=== PATIENT | male | born 1995 | race Caucasian/White ===

== ENCOUNTER 2022-03-21 21:52 | Emergency (ER) | payer SELFPAY ==
[~2022-03-21] VITALS: Ht 162.6 cm; Wt 70.0 kg
[2022-03-21 22:05] VITALS: BP 144/99
[2022-03-21 22:42] LABS: BASOPHILS % 0.5 % (0.0-2.0); EOSINOPHILS % 0.7 % (0.0-5.0); HEMATOCRIT. 50.1 % (42.0-52.0); HEMOGLOBIN. 16.4 g/dL (14.0-18.0); LYMPHOCYTES % 32.1 % (20.0-50.0); MEAN CORPUSCULAR HEMOGLOBIN 30.3 pg (28.0-32.0); MEAN CORPUSCULAR VOLUME 92.5 fL (80.0-94.0); MEAN PLATELET VOLUME 9.2 fl (7.4-10.4); MONOCYTES % 6.4 % (2.0-8.0); NEUTROPHILS % 60.3 % (40.0-76.0); PLATELET 280 x1000/uL (130-400); RED BLOOD CELL COUNT 5.42 mill/uL (4.7-6.1); RED CELL DISTRIBUTION WIDTH 13.8 % (11.6-14.6)
[2022-03-21 22:48] LABS: CHLORIDE 106 mEq/L (98-107)
[2022-03-21 22:56] LABS: ETHANOL BLOOD 233 mg/dL
[2022-03-21 23:21] LABS: CLARITY URINE CLEAR (CLEAR); COLOR URINE YELLOW (YELLOW); KETONES URINE NEGATIVE (NEGATIVE); LEUKOCYTE ESTERASE URINE NEGATIVE (NEGATIVE); NITRITE URINE NEGATIVE (NEGATIVE); OCCULT BLOOD URINE TRACE (NEGATIVE); PROTEIN URINE 2+ (NEGATIVE); SPECIFIC GRAVITY URINE 1.008 (1.005-1.030); UROBILINOGEN URINE 0.2 E.U./dL (0.2-1.0)
[2022-03-21 23:31] LABS: *AMPHETAMINES SCREEN URINE PRESUMTIVE POSITIVE (NEGATIVE); *BARBITURATES SCREEN URINE NEGATIVE (NEGATIVE); *BENZODIAZEPINES SCREEN URINE NEGATIVE (NEGATIVE); *COCAINE SCREEN URINE NEGATIVE (NEGATIVE); CANNABINOID URINE SCREEN NEGATIVE (NEGATIVE); METHADONE URINE SCREEN NEGATIVE (NEGATIVE); OPIATES URINE SCREEN NEGATIVE (NEGATIVE); PHENCYCLIDINE URINE SCREEN NEGATIVE (NEGATIVE)
[2022-03-22] MEDS ORDERED: NALO4SPR BOTHNSTRLS (00:38)
== END 2022-03-22 00:50 | disposition home or self-care (01) ==
LOC: ER 21:52
DX: T40.601A Poisoning by unspecified narcotics, accidental (unintentional), initial encounter (principal); Y92.9 Unspecified place or not applicable
CPT/HCPCS: 36415; 80053; 80305; 80320; 81003; 85025; 99283; G0480

== ENCOUNTER 2023-06-29 16:41 | Emergency (ER) | payer SELFPAY ==
[~2023-06-29] VITALS: Ht 170.2 cm; Wt 67.0 kg
[~2023-06-29 16:41] MED LIST: NALO4SPR BOTHNSTRLS
[2023-06-29 16:54] VITALS: O2SAT 100
[2023-06-29] MEDS ORDERED: ONDANSETRON 4MG ODT PO ONE (17:00)
[2023-06-29] MEDS ORDERED: ONDANSETRON 4MG ODT PO NR (18:45)
[2023-06-29] MEDS ORDERED: NAP5EC MT (19:46)
[2023-06-29] MEDS ORDERED: IBUPROFEN 600MG TABLET PO ONE (20:00)
[2023-06-29 20:10] VITALS: BP 117/80; PULSE 62; RESP 16; TEMP 98.6
== END 2023-06-29 20:21 | disposition home or self-care (01) ==
LOC: ER 16:41
DX: M54.50 Low back pain, unspecified (principal); F19.90 Other psychoactive substance use, unspecified, uncomplicated; V98.8XXA Other specified transport accidents, initial encounter; Y93.89 Activity, other specified; Y92.89 Other specified places as the place of occurrence of the external cause; Y99.8 Other external cause status
CPT/HCPCS: 99283; 72110; Q0162

== ENCOUNTER 2025-03-16 17:58 | Inpatient (IN) | payer MEDICAID ==
[~2025-03-16] VITALS: Ht 165.1 cm; Wt 53.5 kg
[~2025-03-16 17:58] MED LIST changes: +NAPR-1495 MT
[2025-03-16 18:03] VITALS: O2SAT 99
[2025-03-16] MEDS: LIDOCAINE HCL 1% 20ML VIAL INFIL ONE ×2 (18:30)
[2025-03-16] MEDS: SODIUM CHLORIDE 0.9% 1,000 ML IV ONE (18:37)
[2025-03-16] MEDS: TETANUS, DIPHTHERIA, PERTUSSIS VAC/PF 0.5ML (>10YR OLD) IM ONE (18:38)
[2025-03-16 18:47] LABS: BASOPHILS % 0.5 % (0.0-2.0); EOSINOPHILS % 2.2 % (0.0-5.0); HEMATOCRIT. 46.8 % (42.0-52.0); HEMOGLOBIN. 15.8 g/dL (14.0-18.0); LYMPHOCYTES % 23.1 % (20.0-50.0); MEAN PLATELET VOLUME 9.0 fl (7.4-10.4); MONOCYTES % 7.8 % (2.0-8.0); NEUTROPHILS % 66.4 % (40.0-76.0); PLATELET 309 x1000/uL (130-400); RED BLOOD CELL COUNT 5.03 mill/uL (4.7-6.1); RED CELL DISTRIBUTION WIDTH 13.9 % (11.6-14.6)
[2025-03-16 18:52] LABS: CREATININE 1.0 mg/dL (0.6-1.3); UREA NITROGEN BLOOD 5 mg/dL (9-23)
[2025-03-16 19:01] LABS: INR 1.0
[2025-03-16] MEDS: CEFAZOLIN 1000MG PREMIX 50 ML IV ONE (19:19)
[2025-03-16] MEDS: MORPHINE SULFATE 4 MG/ML INJ (FOR IV/IM USE) IV ONE (21:12)
[2025-03-16] MEDS: ONDANSETRON HCL 4MG/2ML INJ IV ONE (21:13)
[2025-03-16] MEDS: MORPHINE SULFATE 2 MG/ML INJ (NOT FOR IM USE) IV ONE (23:51)
[2025-03-17] VITALS (7 sets, daily range): BP systolic 122–151; BP diastolic 53–99; PULSE 59–74; RESP 16–20; TEMP 36.6–37.2; O2SAT 96–99
[2025-03-17] MEDS ORDERED: ONDANSETRON HCL 4MG/2ML INJ IV PRN (00:15)
[2025-03-17] MEDS ORDERED: ACETAMINOPHEN 325MG TABLET PO PRN (00:15)
[2025-03-17] MEDS ORDERED: MAGNESIUM/ALUMINUM HYDROXIDE/SIMETHICONE 30ML UDC PO PRN (00:15)
[2025-03-17] MEDS ORDERED: NALOXONE HCL 0.4MG/ML VIAL IV PRN (00:15)
[2025-03-17] MEDS: HYDROCODONE/ACETAMINOPHEN 5/325MG TABLET PO PRN (00:56)
[2025-03-17] MEDS: CEFTRIAXONE 1GM/50ML 50 ML IV SCH (01:23)
[2025-03-17] MEDS: ENOXAPARIN 40MG/0.4ML SYR SUBCUT SCH (08:23)
[2025-03-17] MEDS: PANTOPRAZOLE SODIUM 40 MG/VIAL IV SCH (08:23)
[2025-03-17 15:38] LABS: CLARITY URINE CLEAR (CLEAR); COLOR URINE YELLOW (YELLOW); GLUCOSE URINE NEGATIVE (NEGATIVE); KETONES URINE NEGATIVE (NEGATIVE); LEUKOCYTE ESTERASE URINE NEGATIVE (NEGATIVE); NITRITE URINE NEGATIVE (NEGATIVE); OCCULT BLOOD URINE NEGATIVE (NEGATIVE); PH URINE 6.0 (4.5-8.0); PROTEIN URINE 1+ (NEGATIVE); SPECIFIC GRAVITY URINE 1.010 (1.005-1.030); UROBILINOGEN URINE 0.2 E.U./dL (0.2-1.0)
[2025-03-17 15:46] LABS: *AMPHETAMINES SCREEN URINE NEGATIVE (NEGATIVE); *BARBITURATES SCREEN URINE NEGATIVE (NEGATIVE); *BENZODIAZEPINES SCREEN URINE NEGATIVE (NEGATIVE); *COCAINE SCREEN URINE NEGATIVE (NEGATIVE); CANNABINOID URINE SCREEN NEGATIVE (NEGATIVE); ECSTASY MDMA SCREEN URINE NEGATIVE (NEGATIVE); METHADONE URINE SCREEN NEGATIVE (NEGATIVE); OPIATES URINE SCREEN PRESUMPTIVE POSITIVE (NEGATIVE); PHENCYCLIDINE URINE SCREEN NEGATIVE (NEGATIVE)
[2025-03-17 15:55] LABS: BACTERIA URINE NONE SEEN; RBC URINE 0-2 /hpf (0-2); SQUAMOUS EPITHELIAL CELL URINE RARE /lpf (RARE/1+); WBC URINE 0-2 /hpf (0-2)
[2025-03-18] VITALS: BP 120/91; PULSE 74; RESP 18; TEMP 36.4; O2SAT 99
[2025-03-18] MEDS: CEFTRIAXONE 1GM/50ML 50 ML IV SCH (01:23)
[2025-03-18 04:00] VITALS: BP 144/94; PULSE 63; RESP 18; TEMP 36.7; O2SAT 99
[2025-03-18 08:00] VITALS: BP 130/98; PULSE 71; RESP 18; TEMP 36.4; O2SAT 99
[2025-03-18 08:30] LABS: BASOPHILS % 0.4 % (0.0-2.0); EOSINOPHILS % 1.9 % (0.0-5.0); HEMATOCRIT. 47.7 % (42.0-52.0); HEMOGLOBIN. 16.2 g/dL (14.0-18.0); LYMPHOCYTES % 23.5 % (20.0-50.0); MEAN PLATELET VOLUME 9.3 fl (7.4-10.4); MONOCYTES % 9.1 % (2.0-8.0); NEUTROPHILS % 65.1 % (40.0-76.0); PLATELET 306 x1000/uL (130-400); RED BLOOD CELL COUNT 5.17 mill/uL (4.7-6.1); RED CELL DISTRIBUTION WIDTH 13.7 % (11.6-14.6)
[2025-03-18 08:50] LABS: CREATININE 1.0 mg/dL (0.6-1.3); UREA NITROGEN BLOOD 11 mg/dL (9-23)
[2025-03-18 12:00] VITALS: BP 125/93; PULSE 67; RESP 67; TEMP 36.7; O2SAT 99
[2025-03-18 15:36] VITALS: BP 109/76; PULSE 74; RESP 18; TEMP 36.6; O2SAT 98
[2025-03-18 20:00] VITALS: BP 122/84; PULSE 73; RESP 18; TEMP 36.7; O2SAT 99
[2025-03-18] MEDS ORDERED: IOHEXOL-300 100 ML BOTTLE ONE (22:25)
[2025-03-19] VITALS: BP 128/84; PULSE 68; RESP 18; TEMP 36.7; O2SAT 98
[2025-03-19] MEDS: SODIUM CHLORIDE 0.9% 1,000 ML IV SCH (01:06)
[2025-03-19 04:00] VITALS: BP 123/86; PULSE 76; RESP 16; TEMP 36.6; O2SAT 98
[2025-03-19 06:48] LABS: BASOPHILS % 0.3 % (0.0-2.0); CREATININE 1.0 mg/dL (0.6-1.3); EOSINOPHILS % 3.5 % (0.0-5.0); HEMATOCRIT. 46.6 % (42.0-52.0); HEMOGLOBIN. 15.9 g/dL (14.0-18.0); LYMPHOCYTES % 26.4 % (20.0-50.0); MEAN PLATELET VOLUME 9.6 fl (7.4-10.4); MONOCYTES % 9.4 % (2.0-8.0); NEUTROPHILS % 60.4 % (40.0-76.0); PLATELET 300 x1000/uL (130-400); RED BLOOD CELL COUNT 5.09 mill/uL (4.7-6.1); RED CELL DISTRIBUTION WIDTH 13.3 % (11.6-14.6)
[2025-03-19 06:49] LABS: UREA NITROGEN BLOOD 15 mg/dL (9-23)
[2025-03-19 08:00] VITALS: BP 138/100; PULSE 90; RESP 20; TEMP 36.8; O2SAT 100
[2025-03-19] MEDS ORDERED: BACITRACIN 14GM TUBE TOP ONE (10:26)
[2025-03-19] MEDS ORDERED: POLYMYXIN B SULFATE 500000 UNITS/VIAL ONE (10:26)
[2025-03-19] MEDS ORDERED: BUPIVACAINE HCL/PF 0.5% (5MG/ML) 10ML ONE (10:27)
[2025-03-19] MEDS ORDERED: LIDOCAINE HCL 1% 10 MG/ML 10ML VIAL ONE (10:27)
[2025-03-19] MEDS ORDERED: LIDOCAINE HCL/EPINEPHRINE 1%-EPI 1:100,000 20ML VIAL ONE (10:27)
[2025-03-19] MEDS ORDERED: FENTANYL CITRATE/PF 50MCG/ML 2ML VIAL ONE (10:45)
[2025-03-19] MEDS ORDERED: PROPOFOL 200MG/20ML VIAL IV ONE (10:45)
[2025-03-19] MEDS ORDERED: MIDAZOLAM HCL 2 MG/2 ML VIAL ONE (11:21)
[2025-03-19 12:00] VITALS: BP 134/88; PULSE 86; RESP 17; TEMP 36.7; O2SAT 90
[2025-03-19] MEDS ORDERED: ONDANSETRON HCL 4MG/2ML INJ IV PRN (12:30)
[2025-03-19] MEDS ORDERED: DEXAMETHASONE 4MG/ML 1ML VIAL IV PRN (12:30)
[2025-03-19] MEDS ORDERED: HYDRALAZINE 20MG/ML VIAL IV PRN (12:30)
[2025-03-19] MEDS ORDERED: LABETALOL 5MG/ML 4ML INJ IV PRN (12:30)
[2025-03-19] MEDS ORDERED: GLYCOPYRROLATE 0.2 MG/ML 2ML VIAL IV PRN (12:30)
[2025-03-19] MEDS ORDERED: HYDROMORPHONE HCL/PF 1MG/ML INJ IV PRN ×2 (12:30)
[2025-03-19] MEDS ORDERED: CEPH500C2 MT (15:45)
[2025-03-19] MEDS ORDERED: TRAM50TA3 MT (15:45)
[2025-03-19 16:00] VITALS: BP 105/70; PULSE 68; RESP 16; TEMP 36.6; O2SAT 98
[2025-03-19 20:00] VITALS: BP 132/94; PULSE 69; RESP 19; TEMP 37.4; O2SAT 98
[2025-03-19] MEDS: ZOLPIDEM TARTRATE 5MG TABLET PO PRN (22:24)
[2025-03-20] VITALS: BP 166/107; PULSE 80; RESP 18; TEMP 37.2; O2SAT 98
[2025-03-20] MEDS: CLONIDINE 0.1MG TABLET PO PRN
[2025-03-20 04:00] VITALS: BP 142/102; PULSE 78; RESP 18; TEMP 36.4; O2SAT 98
[2025-03-20] MEDS: MORPHINE SULFATE 2 MG/ML INJ (NOT FOR IM USE) IV PRN (06:48)
[2025-03-20 08:00] VITALS: BP 171/102; PULSE 82; RESP 20; TEMP 36.6; O2SAT 99
[2025-03-20 09:22] LABS: BASOPHILS % 0.5 % (0.0-2.0); EOSINOPHILS % 2.3 % (0.0-5.0); HEMATOCRIT. 45.5 % (42.0-52.0); HEMOGLOBIN. 15.4 g/dL (14.0-18.0); LYMPHOCYTES % 23.3 % (20.0-50.0); MEAN PLATELET VOLUME 9.6 fl (7.4-10.4); MONOCYTES % 8.4 % (2.0-8.0); NEUTROPHILS % 65.5 % (40.0-76.0); PLATELET 316 x1000/uL (130-400); RED BLOOD CELL COUNT 4.92 mill/uL (4.7-6.1); RED CELL DISTRIBUTION WIDTH 13.5 % (11.6-14.6)
[2025-03-20 09:38] LABS: CREATININE 0.8 mg/dL (0.6-1.3); UREA NITROGEN BLOOD 11 mg/dL (9-23)
[2025-03-20 10:55] VITALS: BP 125/77; PULSE 68; TEMP 98.3
[2025-03-20 12:00] VITALS: BP 127/81; PULSE 76; RESP 19; TEMP 36.7; O2SAT 98
== END 2025-03-20 14:11 | disposition home or self-care (01) | DRG 316 ==
LOC: ER 17:58 → 7EST 23:25 → EDBEDREQ 23:27 → EDBEDREQTM 23:27 → ENRESERV 23:39
PROVIDERS: ADMIT Internal Medicine; ATTEND Internal Medicine
PROC: 0HQFXZZ Repair Right Hand Skin, External Approach (ICD-10-PCS; 2025-03-16)
PROC: 0HQFXZZ Repair Right Hand Skin, External Approach (ICD-10-PCS; 2025-03-16)
PROC: 0HQFXZZ Repair Right Hand Skin, External Approach (ICD-10-PCS; 2025-03-16)
PROC: 0JDJ0ZZ Extraction of Right Hand Subcutaneous Tissue and Fascia, Open Approach (ICD-10-PCS; 2025-03-16)
PROC: 0JBJ0ZZ Excision of Right Hand Subcutaneous Tissue and Fascia, Open Approach (ICD-10-PCS; principal; 2025-03-19)
DX: S61.212A Laceration without foreign body of right middle finger without damage to nail, initial encounter (principal); S61.214A Laceration without foreign body of right ring finger without damage to nail, initial encounter; S61.216A Laceration without foreign body of right little finger without damage to nail, initial encounter; Z82.49 Family history of ischemic heart disease and other diseases of the circulatory system; Y93.89 Activity, other specified; Y92.89 Other specified places as the place of occurrence of the external cause; Y99.8 Other external cause status; Z88.8 Allergy status to other drugs, medicaments and biological substances; X58.XXXA Exposure to other specified factors, initial encounter; Y93.9 Activity, unspecified; Y92.9 Unspecified place or not applicable; Y99.9 Unspecified external cause status
CPT/HCPCS: 12004; 36415; 73130; 73200; 80048; 80305; 81003; 82962; 85025; 86850; 86900; 90715; 93005; 93970; 99285; J0665; J0690; J0696; J1650; J2003; J2004; J2250; J2270; J2405; J2470; J2704; J3010; J3490; J7030; Q9967

== ENCOUNTER 2025-03-22 15:30 | Emergency (ER) | payer MEDICAID ==
[~2025-03-22] VITALS: Ht 165.1 cm; Wt 59.0 kg
[~2025-03-22 15:30] MED LIST changes: +CEPH500C2 MT; -NALO4SPR BOTHNSTRLS; -NAPR-1495 MT; +TRAM50TA3 MT
[2025-03-22 15:47] VITALS: O2SAT 99
[2025-03-22 16:05] VITALS: BP 124/80; PULSE 59; RESP 18; TEMP 37.1; O2SAT 100
== END 2025-03-22 18:25 | disposition home or self-care (01) ==
LOC: ER 15:30
DX: S41.112D Laceration without foreign body of left upper arm, subsequent encounter (principal); Z53.21 Procedure and treatment not carried out due to patient leaving prior to being seen by health care provider; Z48.00 Encounter for change or removal of nonsurgical wound dressing; X58.XXXD Exposure to other specified factors, subsequent encounter

== ENCOUNTER 2025-03-23 17:57 | Emergency (ER) | payer MEDICAID ==
[~2025-03-23] VITALS: Ht 162.6 cm; Wt 50.0 kg
[2025-03-23 18:04] VITALS: BP 113/74; TEMP 36.9; O2SAT 99
[2025-03-23 18:07] VITALS: PULSE 71; RESP 16; O2SAT 98
== END 2025-03-23 23:20 | disposition left against medical advice (07) ==
LOC: ER 17:57
DX: S61.401A Unspecified open wound of right hand, initial encounter (principal); Z53.21 Procedure and treatment not carried out due to patient leaving prior to being seen by health care provider; X58.XXXA Exposure to other specified factors, initial encounter; Y93.89 Activity, other specified; Y92.89 Other specified places as the place of occurrence of the external cause; Y99.8 Other external cause status